=== PATIENT | male | born 1995 | race African-American/Black ===

== ENCOUNTER 2016-11-19 11:43 | Outpatient (CLI) | payer OTHER | END 2016-11-19 11:44 | disposition home or self-care (01) | DX: S69.92XA Unspecified injury of left wrist, hand and finger(s), initial encounter (principal) ==

== ENCOUNTER 2017-02-03 11:20 | Emergency (ER) | payer OTHER ==
[2017-02-03 12:07] LABS: ALBUMIN/GLOBULIN RATIO 1.2 (1.0-2.2); BILIRUBIN,TOTAL 0.8 mg/dL (0.2-1.0); CALCIUM 9.5 mg/dL (8.5-10.3); CREATININE 1.1 mg/dL (0.6-1.2); POTASSIUM 4.4 mmol/L (3.5-5.0); TOTAL PROTEIN 9.1 g/dL (6.7-8.2)
[2017-02-03 12:13] LABS: BILIRUBIN,URINE NEGATIVE (NEGATIVE)
[2017-02-03 12:14] LABS: UA CHARGE (STRIP ONLY) YES; UR CULTURE IF IND NOT INDICATED
[2017-02-03 14:23] LABS: BASOPHILS # (AUTO) 0.1 10^3/uL (0.0-0.1); BASOPHILS % (AUTO) 1.4 %; EOSINOPHILS # (AUTO) 0.1 10^3/uL (0.0-0.7); EOSINOPHILS % (AUTO) 1.7 %; HCT - HEMATOCRIT 45.1 % (42.0-52.0); HGB - HEMOGLOBIN 14.5 g/dL (14.0-18.0); LYMPHOCYTES # (AUTO) 3.3 10^3/uL (1.5-3.5); LYMPHOCYTES % (AUTO) 39.9 %; MEAN CORPUSCULAR HEMOGLOBIN 25.1 pg (27.0-31.0); MEAN CORPUSCULAR HGB CONC 32.2 g/dL (32.0-36.0); MEAN CORPUSCULAR VOLUME 77.9 fL (80.0-94.0); MEAN PLATELET VOLUME 7.4 fL (7.4-11.4); MONOCYTES # (AUTO) 0.7 10^3/uL (0.0-1.0); MONOCYTES % (AUTO) 8.3 %; NEUTROPHILS # (AUTO) 4.1 10^3/uL (1.5-6.6); NEUTROPHILS % (AUTO) 48.7 %; NUCLEATED RED BLOOD CELLS AUTO 0.1 /100WBC; RED BLOOD COUNT 5.79 10^6/uL (4.70-6.10); RED CELL DISTRIBUTION WIDTH 15.6 % (12.0-15.0); UNCORRECTED WHITE BLOOD COUNT 8.4 x10^3/uL; WHITE BLOOD COUNT 8.4 x10^3/uL (4.8-10.8)
--- NOTE | 2017-02-03 14:25 | CT Preliminary Report ---
Exam: CT Abdomen/Pelvis W/O IMPRESSION: 1. A 1 mm nonobstructing mid right renal stone. 2. No left renal stone or hydronephrosis. 3. Diverticulosis without definite diverticulitis. [facility] SITE ID: [id number]
--- NOTE | 2017-02-03 14:27 | CT Report ---
EXAM: CT ABDOMEN AND PELVIS (CT KUB) EXAM DATE: 02/03/2017 02:10 PM. CLINICAL HISTORY: Acute left flank pain. COMPARISONS: None. TECHNIQUE: Routine axial helical CT imaging was performed through the abdomen and pelvis without IV c ontrast. Reconstructions: Coronal and sagittal. In accordance with CT protocol optimization, one or more of the following dose reduction techniques w ere utilized for this exam: automated exposure control, adjustment of mA and/or KV based on patient s ize, or use of iterative reconstructive technique. FINDINGS: Lung Bases: Unremarkable. Right Kidney/Ureter: A 1 mm anterior right interpolar renal stone. No contour deforming mass. Left Kidney/Ureter: No stones, hydronephrosis, or hydroureter. No perinephric fat stranding. Other Solid Organs: Noncontrast images of the solid organs are grossly unremarkable. Gallbladder/Bile Ducts: Unremarkable. Peritoneal Cavity: Diverticulosis. No definite pericolonic inflammatory change. Prominent fat within the wall of left hemicolon, probable normal variant. Pelvic Organs: No bladder stones or wall thickening. Noncontrast images of the visualized pelvic orga ns are unremarkable. Vasculature: Unremarkable. Other: None. IMPRESSION: 1. A 1 mm nonobstructing mid right renal stone. 2. No left renal stone or hydronephrosis. 3. Diverticulosis without definite diverticulitis. [facility] Referring Provider Line: [phone] SITE ID: [id number]
[2017-02-03 14:40] VITALS: BP 138/84
[2017-02-03 14:46] LABS: PLATELET ESTIMATE, MANUAL NORMAL (130-450,000) (NORMAL); PLATELET MORPHOLOGY NORMAL APPEARANCE (NORMAL)
[2017-02-03 14:47] LABS: WBC MORPHOLOGY (MULTIPLE) NORMAL APPEARANCE (NORMAL)
--- NOTE | 2017-02-03 14:47 | ED Physician Documentation ---
PD HPI ABD PAIN - Stated complaint Stated Complaint: LOWER ABD PX - Chief complaint Chief Complaint: Abd Pain - History obtained from History obtained from: Patient - History of Present Illness Timing - onset: How many minutes ago (45) Timing - details: Abrupt onset Quality: Pain Location: LLQ Radiation: Other (Left groin) Associated symptoms: Vomiting. No: Fever, Dysuria Similar symptoms before: Has not had sx before - Additional information Additional information: The patient is an otherwise healthy 21-year-old male who presents with left lower quadrant abdominal pain radiating to his left groin. The pain started suddenly about 45 minutes prior to arrival while he was walking. He was doubled over in pain, and had associated vomiting. He denies fever or dysuria. The pain has improved since onset but has not resolved completely. He denies history of similar symptoms in the past. He's had no abdominal surgery. Review of Systems Constitutional: denies: Fever Nose: denies: Congestion Throat: denies: Sore throat Cardiac: denies: Chest pain / pressure Respiratory: denies: Dyspnea, Cough GI: reports: Abdominal Pain, Nausea, Vomiting. denies: Diarrhea : denies: Dysuria, Incontinent, Testicular pain Skin: denies: Rash Musculoskeletal: denies: Back pain Neurologic: denies: Headache PD PAST MEDICAL HISTORY - Past Medical History Past Medical History: Yes Cardiovascular: Hypertension Endocrine/Autoimmune: None GI: None - Past Surgical History Past Surgical History: No - Present Medications Home Medications: Ambulatory Orders Medication Instructions Recorded Confirmed No Known Home Medications [No 02/03/17 02/03/17 Known Home Medications] - Allergies Allergies/Adverse Reactions: Allergies Allergy/AdvReac Type Severity Reaction Status Date / Time No Known Drug Allergies Allergy Verified 02/03/17 11:26 - Social History Does the pt smoke?: No Smoking Status: Never smoker Does the pt drink ETOH?: Yes ETOH Use: Beer Does the pt have substance abuse?: No - Immunizations Immunizations are current?: Yes - POLST Patient has POLST: No PD ED PE NORMAL - Vitals Vital signs reviewed: Yes (Initially hypertensive.) - General General: Alert and oriented X 3, Well developed/nourished - HEENT HEENT: Atraumatic, Pharynx benign - Neck Neck: No adenopathy - Cardiac Cardiac: RRR, No murmur - Respiratory Respiratory: No respiratory distress, Clear bilaterally - Abdomen Abdomen: Normal bowel sounds, Soft, Non distended, No organomegaly, Other ( Abdomen and is currently nontender to palpation. There is no inguinal hernia defect detected.) - Male Male : Other (No scrotal mass or swelling, and no testicular tenderness.) - Back Back: No CVA TTP - Derm Derm: No rash - Neuro Neuro: Alert and oriented X 3, No motor deficit, Normal speech Results - Vitals Vitals: Oxygen O2 Source Room air - Labs Labs: Laboratory Tests 02/03/17 02/03/17 02/03/17 11:45 11:52 14:20 WBC 8.4 RBC 5.79 Hgb 14.5 Hct 45.1 MCV 77.9 L MCH 25.1 L MCHC 32.2 RDW 15.6 H Plt Count 269 MPV 7.4 Neut # 4.1 Lymph # 3.3 Wayne # 0.7 Eos # 0.1 Baso # 0.1 Absolute Nucleated RBC 0.00 Nucleated RBCs 0.1 Manual Slide Review Indicated WBC Morphology NORMAL APPEARANCE Platelet Estimate NORMAL (130-450,000) Platelet Morphology NORMAL APPEARANCE RBC Morph Micro Appear 1+ MICROCYTOSIS Sodium 137 Potassium 4.4 Chloride 104 Carbon Dioxide 26 Anion Gap 7.0 BUN 21 H Creatinine 1.1 Estimated GFR (MDRD) 101 Glucose 94 Calcium 9.5 Total Bilirubin 0.8 AST 27 ALT 27 Alkaline Phosphatase 72 Total Protein 9.1 H Albumin 5.0 Globulin 4.1 Albumin/Globulin Ratio 1.2 Lipase 17 L Urine Color YELLOW Urine Clarity CLEAR Urine pH 6.0 Ur Specific [place] 1.025 Urine Protein NEGATIVE Urine Glucose (UA) NEGATIVE Urine Ketones NEGATIVE Urine Occult Blood TRACE-LYSE Urine Nitrite NEGATIVE Urine Bilirubin NEGATIVE Urine Urobilinogen 0.2 (NORMAL) Ur Leukocyte Esterase NEGATIVE Ur Microscopic Review NOT INDICATED Urine Culture Comments NOT INDICATED - Rads (name of study) CT abdomen and pelvis w/o Radiology: Prelim report reviewed, EMP read contemporaneously, See rad report, Other (1 mm nonobstructing right mid renal stone. No left renal or ureteral stone or hydronephrosis. Mild diverticulosis without diverticulitis.) PD MEDICAL DECISION MAKING - ED course Complexity details: reviewed results, re-evaluated patient, considered differential, d/w patient, d/w family ED course: The underlying cause of the patient's transient severe abdominal pain is uncertain at this time. His history is suggestive of renal colic, which remains the most likely cause of his symptoms. However urinalysis is negative and CT scan of the abdomen and pelvis reveals no left ureteral calculus. There is a nonobstructing right mid renal stone. It is possible that the patient may have had a left ureteral stone that has passed prior to getting the CT scan. His presentation does not suggest diverticulitis, appendicitis, and I doubt testicular torsion. I discussed with him and his the results of his workup, as well as potentially worrisome signs or symptoms that should prompt reevaluation. Departure - Departure Disposition: 01 Home, Self Care Clinical Impression: Abdominal pain Qualifiers: Abdominal location: left lower quadrant Qualified Code(s): R10.32 - Left lower quadrant pain Vomiting Qualifiers: Vomiting type: unspecified Vomiting Intractability: non-intractable Nausea presence: with nausea Qualified Code(s): R11.2 - Nausea with vomiting, unspecified Condition: Stable Instructions: ED Abdominal Pain Unkn Cause, ED Stone Renal W Colic Comments: Drink plenty of fluids, and stay well hydrated. Followup with primary physician. Call to schedule an appointment. Return to the emergency department if you develop recurrent or increasing abdominal pain, fever, persistent vomiting, or otherwise worsening symptoms. Discharge Date/Time: 02/03/17 14:59
== END 2017-02-03 14:59 | disposition home or self-care (01) ==
LOC: ED 11:20
DX: R10.32 Left lower quadrant pain (principal); R11.2 Nausea with vomiting, unspecified; I10 Essential (primary) hypertension
CPT/HCPCS: 36415; 74176; 80053; 81001; 81003; 83690; 85025; 87086; 99283; 99284